=== PATIENT | female | born 1970 | race Caucasian/White ===

== ENCOUNTER 2016-11-29 19:25 | Observation (INO) | payer OTHER ==
[~2016-11-29] VITALS: Ht 165.1 cm; Wt 98.7 kg
[2016-11-29] VITALS (8 sets, daily range): BP systolic 153–190; BP diastolic 85–103; PULSE 84–104; RESP 17–22; TEMP 98–98.6; O2SAT 97–100
[2016-11-29] MEDS ORDERED: SODIUM CHLOR 0.9% 1000 ML INJ 1,000 ML IV SCH (19:47)
[2016-11-29] MEDS ORDERED: MORPHINE SULFATE 4 MG/ML INJ IV PUSH ONE ×2 (20:00→22:00)
[2016-11-29] MEDS ORDERED: FAMOTIDINE 20 MG/2 ML VIAL IV PUSH ONE (20:00)
[2016-11-29] MEDS ORDERED: ONDANSETRON HCL 4 MG/2 ML VIAL IVP ONE (20:00)
[2016-11-29] MEDS ORDERED: PIPERACIL-TAZO 3.375 GM PREMIX 50 ML IV ONE (20:00)
--- NOTE | 2016-11-29 20:01 | PD ---
HPI Chief Complaint: Abdominal Pain Time Seen by Provider: 19:37 Travel History International Travel<30 days: No Contact w/Intl Traveler<30days: No Traveled to known affect area: No History of Present Illness HPI 46 year old female complains of abdominal pain. Patient states that she started having severe right upper quadrant abdominal pain for the past 5 days. Patient states that she has nausea vomiting with the pain. Patient denies any pain radiation. Patient denies any dysuria or frequency. Patient denies any vaginal discharge or bleeding. Patient was seen at a walk-in clinic in [place] today and had outpatient gallbladder ultrasound done at [facility]. Patient was contacted later on today and was told that she has gallstones, acute cholecystitis with thickened gallbladder wall. Patient was advised to go to the emergency room to be admitted for surgery. Patient has history anxiety and on Lexapro and Xanax. Patient status post in the past. Patient otherwise denies any medical problem. On a scale of 1-10 the pain is a 7. PFSH Social History Tobacco Use: No Allergies-Medications (Allergen,Severity, Reaction): Coded Allergies: No Known Allergies (Verified Allergy, Unknown, 11/29/16) Reported Meds & Prescriptions Reported Meds & Active Scripts Active Reported Xanax (Alprazolam) 0.25 Mg Tab 0.25 Mg PO Q4H PRN Lexapro (Escitalopram Oxalate) 5 Mg Tab Unknown Dose PO DAILY Tramadol (Tramadol HCl) 50 Mg Tab Unknown Dose PO Q4H PRN Lortab (Hydrocodone-Acetaminophen) 7.5-325 Mg Tab 1 Tab PO Q6H PRN Motrin Ib (Ibuprofen) 200 Mg Tablet 400 Mg PO Q6HR PRN Tylenol (Acetaminophen) 325 Mg Tab 650 Mg PO Q4H PRN Review of Systems General / Constitutional: No: Fever Eyes: No: Visual changes HENT: No: Headaches Cardiovascular: No: Chest Pain or Discomfort Respiratory: No: Shortness of Breath Gastrointestinal: Positive: Nausea, Vomiting, Abdominal Pain Genitourinary: No: Dysuria Musculoskeletal: No: Pain Skin: No Rash Neurologic: No: Weakness Psychiatric: No: Depression Endocrine: No: Polydipsia Hematologic/Lymphatic: No: Easy Bruising Physical Exam Narrative GENERAL: Well-nourished, well-developed patient. SKIN: Focused skin assessment warm/dry. HEAD: Normocephalic. EYES: No scleral icterus. No injection or drainage. NECK: Supple, trachea midline. No JVD or lymphadenopathy. CARDIOVASCULAR: Regular rate and rhythm without murmurs, gallops, or rubs. RESPIRATORY: Breath sounds equal bilaterally. No accessory muscle use. GASTROINTESTINAL: Abdomen soft, nondistended. Patient has moderate to severe tenderness on palpation of the right upper quadrant of the abdomen. No rebound tenderness. No mass. MUSCULOSKELETAL: No cyanosis, or edema. BACK: Nontender without obvious deformity. No CVA tenderness. Neurologic exam normal. Data Data Last Documented VS Vital Signs Date Time Temp Pulse Resp B/P (MAP) Pulse Ox O2 Delivery O2 Flow Rate FiO2 11/29/16 21:30 87 18 166/88 (114) 99 Room Air 11/29/16 20:32 98.5 Orders Orders Complete Blood Count With Diff (11/29/16 19:47) Comprehensive Metabolic Panel (11/29/16 19:47) Lipase (11/29/16 19:47) Prothrombin Time / Inr (Pt) (11/29/16 19:47) Urinalysis - C+S If Indicated (11/29/16 19:47) Iv Access Insert/Monitor (11/29/16 19:47) Ecg Monitoring (11/29/16 19:47) Oximetry (11/29/16 19:47) Morphine Inj (Morphine Inj) (11/29/16 20:00) Ondansetron Inj (Zofran Inj) (11/29/16 20:00) Sodium Chlor 0.9% 1000 Ml Inj (Ns 1000 M (11/29/16 19:47) Famotidine Inj (Pepcid Inj) (11/29/16 20:00) Ed Urine Pregnancytest Poc (11/29/16 19:47) Piperacil-Tazo 3.375 Gm Premix (Zosyn 3. (11/29/16 20:00) Us Abdomen Gallbladder (11/29/16 19:57) Urine Culture (11/29/16 20:10) Morphine Inj (Morphine Inj) (11/29/16 22:00) Admit Order (Ed Use Only) (11/29/16 21:56) Vital Signs (Adult) Q4H (11/29/16 21:58) Diet Npo (11/30/16 Breakfast) Activity Oob Ad Lori (11/29/16 21:58) ^ Saline Lock (11/29/16 21:58) Resp Oxygen Rashad C Titrat 1-4 L (11/29/16 ) Notify Dr: Other (11/29/16 21:58) Ondansetron Inj (Zofran Inj) (11/29/16 22:00) Acetaminophen (Tylenol) (11/29/16 22:00) Place In Observation (11/29/16 ) Code Status (11/29/16 22:00) Vital Signs (Adult) Q4H (11/29/16 22:00) Activity Oob Ad Lori (11/29/16 22:00) Intake + Output 06,14,22 (11/29/16 22:00) Consent (11/29/16 22:00) Sodium Chlor 0.9% 1000 Ml Inj (Ns 1000 M (11/29/16 22:00) Sodium Chloride 0.9% Flush (Ns Flush) (11/29/16 22:00) Sodium Chloride 0.9% Flush (Ns Flush) (11/29/16 22:00) Oxycodone-Acetamin 5-325 Mg (Percocet (11/29/16 22:00) Morphine Inj (Morphine Inj) (11/29/16 22:00) Scd / [place] / Foot Pump (11/29/16 22:00) Consult Michi Nfs (11/29/16 ) Piperacil-Tazo 3.375 Gm Premix (Zosyn 3. (11/30/16 04:00) Labs Laboratory Tests Test 11/29/16 20:10 White Blood Count 15.1 TH/MM3 Red Blood Count 4.65 MIL/MM3 Hemoglobin 14.0 GM/DL Hematocrit 41.5 % Mean Corpuscular Volume 89.3 FL Mean Corpuscular Hemoglobin 30.1 PG Mean Corpuscular Hemoglobin Concent 33.7 % Red Cell Distribution Width 11.9 % Platelet Count 471 TH/MM3 Mean Platelet Volume 7.2 FL Neutrophils (%) (Auto) 83.3 % Lymphocytes (%) (Auto) 7.6 % Monocytes (%) (Auto) 5.3 % Eosinophils (%) (Auto) 0.3 % Basophils (%) (Auto) 3.5 % Neutrophils # (Auto) 12.7 TH/MM3 Lymphocytes # (Auto) 1.1 TH/MM3 Monocytes # (Auto) 0.8 TH/MM3 Eosinophils # (Auto) 0.0 TH/MM3 Basophils # (Auto) 0.5 TH/MM3 CBC Comment AUTO DIFF Differential Comment AUTO DIFF CONFIRMED Prothrombin Time 11.2 SEC Prothromb Time International Ratio 1.0 RATIO Urine Color YELLOW Urine Turbidity CLOUDY Urine pH 6.0 Urine Specific [place] GREATER THAN 1.035 Urine Protein 100 mg/dL Urine Glucose (UA) NEG mg/dL Urine Ketones 40 mg/dL Urine Occult Blood LARGE Urine Nitrite NEG Urine Bilirubin NEG Urine Leukocyte Esterase NEG Urine RBC 20-24 /hpf Urine WBC 9-14 /hpf Urine Squamous Epithelial Cells > 8 /hpf Urine Bacteria MOD /hpf Urine Fine Granular Casts 0-2 /lpf Urine Mucus MANY /lpf Microscopic Urinalysis Comment CULTURE INDICATED Blood Urea Nitrogen 7 MG/DL Creatinine 0.78 MG/DL Random Glucose 133 MG/DL Total Protein 8.9 GM/DL Albumin 3.8 GM/DL Calcium Level 9.2 MG/DL Alkaline Phosphatase 102 U/L Aspartate Amino Transf (AST/SGOT) 18 U/L Alanine Aminotransferase (ALT/SGPT) 30 U/L Total Bilirubin 0.5 MG/DL Sodium Level 133 MEQ/L Potassium Level 3.4 MEQ/L Chloride Level 98 MEQ/L Carbon Dioxide Level 24.2 MEQ/L Anion Gap 11 MEQ/L Estimat Glomerular Filtration Rate 80 ML/MIN Lipase 78 U/L MDM Medical Decision Making Medical Screen Exam Complete: Yes Emergency Medical Condition: Yes Interpretation(s) 21:43 PM. CBC WBC 15.1. Platelets 471. 83 neutrophil. Sodium 133. Potassium 3.4. UA positive of WBC RBC and bacteria. Differential Diagnosis Differential diagnosis including acute cholecystitis, appendicitis, colitis, nephrolithiasis, pyelonephritis. Narrative Course 46 years old female with right upper quadrant abdominal pain, nausea vomiting. Outpatient ultrasound shows acute cholecystitis. Unable to obtain imaging or report of the gallbladder ultrasound. Normal saline solution 1 25 cc an hour. Morphine 2 mg IV. Zofran 4 mg IV. Pepcid 20 mg IV. Zosyn 3.375 g IV given. Diagnosis Primary Impression: Acute cholecystitis Additional Impressions: Cholelithiasis Qualified Codes: K80.00 - Calculus of gallbladder with acute cholecystitis without obstruction UTI (urinary tract infection) Qualified Codes: N30.00 - Acute cystitis without hematuria Admitting Information Admitting Physician Requests: Admit Alexandr Unger MD Nov 29, 2016 20:01
[2016-11-29 20:19] LABS: AUTOMATED NEUTROPHIL # 12.7 TH/MM3 (1.8-7.7); BASOPHIL # 0.5 TH/MM3 (0-0.2); BASOPHIL % 3.5 % (0.0-2.0); EOSINOPHIL % 0.3 % (0.0-4.0); HEMATOCRIT 41.5 % (35.0-46.0); LYMPH % 7.6 % (9.0-44.0); LYMPHOCYTE # 1.1 TH/MM3 (1.0-4.8); MEAN CELL VOLUME 89.3 FL (80.0-100.0); MEAN CORPUSCULAR HEMOGLOBIN 30.1 PG (27.0-34.0); MEAN CORPUSCULAR HGB CONC 33.7 % (32.0-36.0); MONO % 5.3 % (0.0-8.0); NEUT % 83.3 % (16.0-70.0); PLATELET COUNT 471 TH/MM3 (150-450); RED BLOOD COUNT 4.65 MIL/MM3 (4.00-5.30); RED CELL DISTRIBUTION WIDTH 11.9 % (11.6-17.2); WHITE BLOOD COUNT 15.1 TH/MM3 (4.0-11.0)
[2016-11-29 20:20] LABS: BLOOD, URINE LARGE (NEG); GLUCOSE,URINE NEG (NEG); KETONE, URINE 40 mg/dL (NEG); NITRITE,URINE NEG (NEG)
[2016-11-29 20:27] LABS: MUCUS URINE MANY /lpf (OCC); URINE COLOR YELLOW (YELLW/STRAW)
[2016-11-29 20:29] LABS: BACTERIA, URINE MOD /hpf; COMMENT (UR) CULTURE INDICATED; CULTURE IF INDICATED CULTURE INDICATED; SQUAMOUS EPITHELIAL CELL URINE > 8 /hpf (0-5)
[2016-11-29 20:32] LABS: CHLORIDE 98 MEQ/L (98-107); HEMO FLAGS AUTO DIFF; POTASSIUM 3.4 MEQ/L (3.5-5.1); SODIUM (NA) 133 MEQ/L (136-145)
[2016-11-29 20:36] LABS: ANION GAP 11 MEQ/L (5-15); BICARBONATE 24.2 MEQ/L (21.0-32.0); BLOOD UREA NITROGEN 7 MG/DL (7-18)
[2016-11-29 20:37] LABS: PROTHROMBIN TIME - PATIENT 11.2 SEC (9.8-11.6)
[2016-11-29] MEDS ORDERED: ALPR.25 PO (20:38)
[2016-11-29] MEDS ORDERED: IBUP-1129 PO (20:38)
[2016-11-29] MEDS ORDERED: LEXA5TAB PO (20:38)
[2016-11-29] MEDS ORDERED: TYLE325T PO (20:38)
[2016-11-29] MEDS ORDERED: HYDR-3534 PO (20:38)
[2016-11-29] MEDS ORDERED: TRAM50TA PO (20:38)
[2016-11-29 20:39] LABS: ALT (GPT) 30 U/L (10-53); AST (GOT) 18 U/L (15-37); GLOMERULAR FILTRATION RATE 80 ML/MIN (>89)
[2016-11-29 20:41] LABS: TOTAL BILIRUBIN ADULT 0.5 MG/DL (0.2-1.0)
[2016-11-29 20:42] LABS: ALKALINE PHOSPHATASE 102 U/L (45-117)
[2016-11-29 20:56] LABS: SCAN/DIFF AUTO DIFF CONFIRMED
--- NOTE | 2016-11-29 21:51 | RADRPT ---
EXAM DATE/TIME: 11/29/2016 20:42 [facility] COMPARISON: No previous studies available for comparison. INDICATIONS : Right upper quadrant pain. MEDICAL HISTORY : Right upper quadrant pain. SURGICAL HISTORY : section. Tubal ligation. ENCOUNTER: Initial ACUITY: 2 days PAIN SCORE: 10/10 LOCATION: Right upper quadrant MEASUREMENTS: LIVER: 19.1 cm length COMMON DUCT: 4 mm RIGHT KIDNEY: 11.2 x 6.5 x 5.8 cm FINDINGS: Small gallstones with gallbladder sludge noted. Positive sonographic Duran's sign with mild gallblad marcella wall thickening. Fatty, mildly enlarged liver. No biliary ductal dilatation. Portal venous flow normal direction. CONCLUSION: 1. Gallstones with gallbladder sludge, mild gallbladder wall thickening and positive sonographic Murp hy's sign. Primary differential diagnosis is cholecystitis. No ductal dilatation. Omega Nava MD on November 29, 2016 at 21:47 Board Certified Radiologist. This report was verified electronically.
[2016-11-29] MEDS ORDERED: ONDANSETRON HCL 4 MG/2 ML VIAL IV PRN (22:00)
[2016-11-29] MEDS ORDERED: SODIUM CHLORIDE 0.9% FLUSH 10 ML FLUSH IV FLUSH PRN (22:00)
[2016-11-29] MEDS ORDERED: MORPHINE SULFATE 4 MG/ML INJ IV PUSH PRN (22:00)
[2016-11-29] MEDS ORDERED: SODIUM CHLORIDE 0.9% FLUSH 10 ML FLUSH IVF PRN (22:00)
[2016-11-29] MEDS ORDERED: ACETAMINOPHEN 325 MG TAB PO PRN (22:00)
[2016-11-29] MEDS: SODIUM CHLORIDE 0.9% FLUSH 10 ML FLUSH IV FLUSH SCH (22:38)
[2016-11-29] MEDS: SODIUM CHLOR 0.9% 1000 ML INJ 1,000 ML IV SCH (22:38)
[2016-11-30] MEDS: MORPHINE SULFATE 4 MG/ML INJ IV PRN ×5 (02:08→23:31)
[2016-11-30] MEDS: PIPERACIL-TAZO 3.375 GM PREMIX 50 ML IV SCH ×3 (03:54→23:32)
[2016-11-30] MEDS: SODIUM CHLOR 0.9% 1000 ML INJ 1,000 ML IV SCH ×3 (03:56→20:19)
[2016-11-30] MEDS ORDERED: PIPERACIL-TAZO 3.375 GM PREMIX 50 ML IV SCH (07:00)
[2016-11-30 07:50] VITALS: O2SAT 97
[2016-11-30 08:00] VITALS: BP 155/87; PULSE 97; RESP 18; TEMP 99.2; O2SAT 97
[2016-11-30] MEDS: SODIUM CHLORIDE 0.9% FLUSH 10 ML FLUSH IV FLUSH SCH ×2 (08:42→20:19)
[2016-11-30] MEDS ORDERED: SODIUM CHLORIDE 0.9% FLUSH 10 ML FLUSH IV FLUSH SCH (09:00)
[2016-11-30] MEDS ORDERED: PHENYLEPH/NS 1000 MCG/10 ML SYR IV ONE (10:09)
[2016-11-30] MEDS ORDERED: ONDANSETRON HCL 4 MG/2 ML VIAL IV PUSH ONE (10:09)
[2016-11-30] MEDS ORDERED: NORMOSOL R INJ 2,000 ML IV ONE (10:09)
[2016-11-30] MEDS ORDERED: PROPOFOL 200 MG/20 ML AMP IV ONE (10:09)
[2016-11-30] MEDS ORDERED: BUPIVACAINE HCL PF 0.5% 30 ML VIAL ONE (10:31)
[2016-11-30] MEDS ORDERED: LIDOCAINE 1%/EPINEPHrine 1:100,000 SOLN 20 ML VIAL ONE (10:31)
--- NOTE | 2016-11-30 11:00 | HHI.PR ---
Immediate Post Op Note Procedure Date: Nov 30, 2016 Pre Op Diagnosis: acute cholecystitis with cholelithiasis Post Op Diagnosis: same Surgeon: Mandeep Barnard MD Switch Foreman(s): see or sheet Procedure: lap tiago Findings: distended gallbladder Complications: none Specimen(s) removed: gallbladder Estimated blood loss: 5cc Anesthesia: General Drains: None Patient to: PACU Patient Condition: Good Mandeep Barnard MD Nov 30, 2016 11:00
[2016-11-30 13:49] VITALS: PULSE 107
[2016-11-30] MEDS ORDERED: fentaNYL CITRATE 250 MCG/5 ML AMP ONE (14:01)
[2016-11-30] MEDS ORDERED: *MEPERIDINE 25 MG INJ VIAL PERIprocedural Use ONLY ONE (14:03)
[2016-11-30] MEDS ORDERED: MORPHINE SULFATE 4 MG/ML INJ ONE (14:16)
[2016-11-30 16:00] VITALS: BP 142/84; PULSE 99; RESP 18; TEMP 97.8; O2SAT 96
[2016-11-30 20:00] VITALS: BP 154/83; PULSE 96; RESP 18; TEMP 99.1; O2SAT 96
[2016-11-30 20:50] VITALS: O2SAT 97
--- NOTE | 2016-11-30 22:28 | MH ---
cc: ALEN MERRILL MD DATE OF ADMISSION 11/29/2016 CHIEF COMPLAINT Right upper quadrant abdominal pain. HISTORY OF PRESENT ILLNESS The patient is a 46-year-old female who presents with acute onset of abdominal pain. She states the pain started approximately five days ago. It was severe, located in the right upper quadrant, radiation to the left upper quadrant and diffusely. She said the pain continued to get worse. She states the pain was initially an 8/10 currently a 7/10 and was worse with eating. She was evaluated at a clinic with findings of a workup including gallbladder ultrasound showing multiple gallstones, thickened gallbladder wall or pericholecystic fluid. She came to emergency department for further evaluation including laboratory studies showing leukocytosis as well. She denies any significant fevers or chills. She does have some nausea and vomiting. PAST MEDICAL HISTORY The patient has no past medical history PAST SURGICAL HISTORY Two c-sections ALLERGIES NO KNOWN DRUG ALLERGIES. MEDICATIONS See MAR SOCIAL HISTORY occasional ETOH, denies smoking or IVDA. FAMILY HISTORY Mother with diabetes. Denies hypertension. REVIEW OF SYSTEMS GENERAL: The patient denies fevers or chills. HEENT: Denies eye pain, ear pain. NECK: Denies swelling or pain. LUNGS: Denies cough or wheeze. HEART: Denies palpitations, chest pain. ABDOMEN: Complained of nausea, vomiting, abdominal pain. : Denies dysuria, hematuria. ENDOCRINE: Denies polyuria, polydipsia. INTEGUMENT: Denies masses or lesions. NEUROLOGIC: Denies numbness or tingling. PHYSICAL EXAMINATION GENERAL: The patient in no acute distress. VITAL SIGNS: Temperature 98.5, pulse 87, respirations 18, blood pressure 166/80, saturation 99% on room air. HEENT: Pupils equal, round, reactive to light and accommodation. No scleral icterus. Normocephalic, atraumatic. NECK: Supple. Trachea midline. LUNGS: Bilateral expansion. Clear. HEART: S1-S2 regular. ABDOMEN: Soft, positive tenderness to palpation right upper quadrant and left upper quadrant, greater on right upper quadrant. Minimal right upper quadrant rebound. BACK: No step-offs, nontender. EXTREMITIES: Warm, well-perfused. NEUROLOGIC: Alert and oriented times three. 5/5 motor all extremities. LABORATORY AND DIAGNOSTIC DATA WBC 15.1, hemoglobin 14, hematocrit 41.5, platelet 471. Sodium 133, potassium 3.4, chloride 98, BUN seven, creatinine 0.7, calcium 9.2, AST 18, ALT 30, lipase 78, INR is one IMAGING STUDIES Ultrasound reviewed by myself showing thickened gallbladder wall, multiple gallstones with sludge and thickening, concern for acute cholecystitis. ASSESSMENT The patient is a 46-year-old female, acute onset of abdominal pain for on for five days consistent with acute cholecystitis with cholelithiasis. PLAN After full clinical, laboratory and radiologic workup, the patient above-named issues including acute cholecystitis. Discussed with the patient need for operative intervention including cholecystectomy. Discussed with the patient potential for drain placement versus open procedure given the duration of the patient's symptoms. The patient stated understanding and agreed. Currently, we will keep the patient on IV antibiotics, pain control, IV fluids, antinausea medication and watch closely and again we will take the patient to the OR for definitive operative intervention. MD NIECY Darby/ /9:58 PM /10:09 PM MTDD
[2016-12-01] VITALS: BP 152/84; PULSE 95; RESP 16; TEMP 98.6; O2SAT 96
[2016-12-01] MEDS ORDERED: PIPERACIL-TAZO 3.375 GM PREMIX 50 ML IV SCH
[2016-12-01] MEDS: MORPHINE SULFATE 4 MG/ML INJ IV PRN ×5 (03:49→22:18)
[2016-12-01] MEDS: SODIUM CHLOR 0.9% 1000 ML INJ 1,000 ML IV SCH ×3 (05:13→22:19)
[2016-12-01] MEDS: oxyCODONE/ACETAMINOPHEN 5 MG/325 MG TAB PO PRN ×4 (05:13→20:17)
[2016-12-01 05:59] LABS: AUTOMATED NEUTROPHIL # 9.2 TH/MM3 (1.8-7.7); BASOPHIL % 0.2 % (0.0-2.0); EOSINOPHIL % 0.1 % (0.0-4.0); HEMATOCRIT 33.9 % (35.0-46.0); LYMPH % 11.1 % (9.0-44.0); LYMPHOCYTE # 1.2 TH/MM3 (1.0-4.8); MEAN CELL VOLUME 91.3 FL (80.0-100.0); MEAN CORPUSCULAR HEMOGLOBIN 30.2 PG (27.0-34.0); MONO % 6.6 % (0.0-8.0); PLATELET COUNT 424 TH/MM3 (150-450); RED BLOOD COUNT 3.72 MIL/MM3 (4.00-5.30); RED CELL DISTRIBUTION WIDTH 12.5 % (11.6-17.2); WHITE BLOOD COUNT 11.1 TH/MM3 (4.0-11.0)
[2016-12-01 06:00] LABS: HEMO FLAGS DIFF FINAL
[2016-12-01 06:09] LABS: ALT (GPT) 71 U/L (10-53); ANION GAP 8 MEQ/L (5-15); AST (GOT) 54 U/L (15-37); BICARBONATE 26.8 MEQ/L (21.0-32.0); BLOOD UREA NITROGEN 6 MG/DL (7-18); CHLORIDE 106 MEQ/L (98-107); GLOMERULAR FILTRATION RATE 100 ML/MIN (>89); POTASSIUM 3.4 MEQ/L (3.5-5.1); SODIUM (NA) 141 MEQ/L (136-145); TOTAL BILIRUBIN ADULT 0.4 MG/DL (0.2-1.0)
[2016-12-01 06:16] LABS: ALKALINE PHOSPHATASE 94 U/L (45-117)
--- NOTE | 2016-12-01 07:24 | HHI.PR ---
Subjective Subjective Notes no acute issues, c/o pain to shoulder and ruq, tolerating clears Objective Vitals/I&O Vital Signs Date Time Temp Pulse Resp B/P (MAP) Pulse Ox O2 Delivery O2 Flow Rate FiO2 12/01/16 00:00 98.6 95 16 152/84 (106) 96 11/30/16 20:50 21 11/30/16 14:45 Room Air 11/30/16 14:30 2 Labs Laboratory Tests Test 12/01/16 05:08 White Blood Count 11.1 Red Blood Count 3.72 Hemoglobin 11.2 Hematocrit 33.9 Mean Corpuscular Volume 91.3 Mean Corpuscular Hemoglobin 30.2 Mean Corpuscular Hemoglobin Concent 33.0 Red Cell Distribution Width 12.5 Platelet Count 424 Mean Platelet Volume 7.3 Neutrophils (%) (Auto) 82.0 Lymphocytes (%) (Auto) 11.1 Monocytes (%) (Auto) 6.6 Eosinophils (%) (Auto) 0.1 Basophils (%) (Auto) 0.2 Neutrophils # (Auto) 9.2 Lymphocytes # (Auto) 1.2 Monocytes # (Auto) 0.7 Eosinophils # (Auto) 0.0 Basophils # (Auto) 0.0 CBC Comment DIFF FINAL Differential Comment Blood Urea Nitrogen 6 Creatinine 0.64 Random Glucose 107 Total Protein 6.5 Albumin 2.6 Calcium Level 8.6 Alkaline Phosphatase 94 Aspartate Amino Transf (AST/SGOT) 54 Alanine Aminotransferase (ALT/SGPT) 71 Total Bilirubin 0.4 Sodium Level 141 Potassium Level 3.4 Chloride Level 106 Carbon Dioxide Level 26.8 Anion Gap 8 Estimat Glomerular Filtration Rate 100 Date/Time Source Procedure Growth Status 11/29/16 20:10 Urine Clean Catch Urine Culture - Preliminary NO GROWTH IN 24 HOURS. Resulted Cardiovascular: Regular Lungs: Clear Abdomen: Other (incisional tenderness, krishan serosang) A/P Assessment and Plan POD 1 Lap tiago, lap duodenal serosal repair PLAN clears advance to fulls later today iv abx krishan sxn oob IS check labs tomorrow Mandeep Barnard MD Dec 01, 2016 07:24
[2016-12-01] MEDS ORDERED: PIPERACILLIN/TAZ 3.375 GM VIAL 3.375 GM in SODIUM CHLORIDE 0.9% INJ 100 ML IV SCH (08:00)
--- NOTE | 2016-12-01 08:00 | MP ---
cc: ALEN BARNARD MD DATE OF SURGERY 11/30/16 PREOPERATIVE DIAGNOSIS Cholecystitis cholelithiasis POSTOPERATIVE DIAGNOSIS Cholecystitis cholelithiasis, adhesions, viable duodenum SURGEON Juan Barnard MD ENVIRONMENTAL PROFESSIONAL see or sheet PROCEDURE Laparoscopic cholecystectomy, laparoscopic repair of duodenal serosa. WOUND CLASSIFICATION Clean contaminated. IV FLUID See anesthesia sheet. ESTIMATED BLOOD LOSS 50 mL DRAINS 10 [place] drain in the right upper quadrant FINDINGS Severely inflamed gallbladder with adhesions and omentum covering necrotic gallbladder wall, very friable duodenal mucosa adherent to gallbladder. SPECIMEN Gallbladder INDICATIONS The patient is a 36 year old female who presents with acute onset of right upper quadrant pain going on for five days. She had significant leukocytosis of 15,000, workup with ultrasound showing acute cholecystitis with cholelithiasis. The patient taken to the operating room for definitive treatment. PROCEDURE IN DETAIL The patient was taken to the operative suite, placed in supine position. She was prepped and draped in the usual sterile fashion after induction of general endotracheal anesthesia. Timeout done stating correct patient, procedure and surgical site. We were all in agreement with this. Attention directed to the umbilicus where a stab kayley incision was made. Veress needle placed, intraabdominal placement confirmed with saline drop test. Abdomen insufflated to 15 mm pneumoperitoneum. A 5 mm scope was obtained and entered through a visi port. On cursory inspection, no evidence of injury. Three other trocars placed, one epigastric 5 mm followed by two 5 right subcostal trocars. The patient placed in reverse Trendelenberg airplaned to the left. Upon initial visual inspection, gallbladder was unable to be visualized due to intense adherent adhesions to the gallbladder. These were meticulously dissected down. Once the gallbladder was identified, it was extremely viable and distended. 150 cc were aspirated with an endo-needle. This facilitated grasping the thick indurated gallbladder. This was retracted cephalad. Further dissection was done with suction irrigation, hook electro Bovie cautery in order to fully identify the gallbladder and remove adhesions of the gallbladder. Upon proceeding, the duodenal mucosa was incidentally adhered to the side of the gallbladder wall as well. This was meticulously but noted to be some separate in the serosa following this very minimally. The gallbladder was slowly and freely mobilized from the adhesions. At this point, gallbladder was dissected down to the infundibulum given again the intense scarring and inflammatory reaction, decision was made for proceeding in dome down approach. The gallbladder was taken from the gallbladder fossa using hook electro Bovie cautery and again suction irrigation. Once the gallbladder was adequately mobilized from this, two PDS endoloops were used in order to ligate the gallbladder as close to the cystic duct as possible. Endo shear was used to transect the gallbladder at the cystic duct and this was placed in an endo-catch bag along with multiple gallstones. Suction irrigation used, 2 liters in the right upper quadrant. Hemostasis was obtained with electro Bovie cautery. At this point, decision was made to place two superficial intercaporial suture in duodenum in a transverse fashion in a figure of eight fashion and laparoscopically. This was done with a 2-0 polysorb. Once we were satisfied with this, decision was made for HARIKA drain placement in the right upper quadrant which was facilitated. Also a small piece of Surgicel was also placed in the gallbladder fossa. Next, the patient was placed flat and pneumoperitoneum was removed. Trocars were removed as well. The epigastric port was closed with 0 Vicryl figure of eight suture, 4-0 Monocryl subcuticular sutures were also placed in the skin. Local anesthetic injected. The patient tolerated the procedure well. No intraoperative complications. The patient was taken stable to post anesthesia care unit. All lap and instrument counts were correct at the end of the procedure. MD NIECY Darby/ /10:04 PM /12:23 PM PHILIP
[2016-12-01] MEDS: SODIUM CHLORIDE 0.9% FLUSH 10 ML FLUSH IV FLUSH SCH ×2 (08:37→20:18)
[2016-12-01 08:40] VITALS: BP 161/102; PULSE 101; RESP 16; TEMP 99.4; O2SAT 96
[2016-12-01] MEDS: PIPERACIL-TAZO 3.375 GM PREMIX 50 ML IV SCH ×2 (09:04→16:55)
[2016-12-01] MEDS: ALPRAZolam 0.25 MG TAB PO PRN ×2 (10:30→20:17)
[2016-12-01 13:37] VITALS: BP 181/98; PULSE 95; RESP 15; TEMP 98.8; O2SAT 96
[2016-12-01] MEDS ORDERED: ENALAPRILAT 2.5 MG/2 ML VIAL IV PUSH PRN (14:15)
[2016-12-01 15:26] VITALS: BP 142/89; PULSE 89; RESP 16; TEMP 97.3; O2SAT 99
[2016-12-01 17:58] VITALS: RESP 16
[2016-12-01 20:10] VITALS: BP 161/100; PULSE 92; RESP 16; TEMP 97.9; O2SAT 99
[2016-12-02] MEDS: PIPERACIL-TAZO 3.375 GM PREMIX 50 ML IV SCH ×2 (00:06→08:01)
[2016-12-02] MEDS: oxyCODONE/ACETAMINOPHEN 5 MG/325 MG TAB PO PRN ×3 (00:11→09:54)
[2016-12-02 00:16] VITALS: BP 133/82; PULSE 73; RESP 20; TEMP 98.2; O2SAT 97
[2016-12-02] MEDS: SODIUM CHLOR 0.9% 1000 ML INJ 1,000 ML IV SCH (07:00)
[2016-12-02 07:05] LABS: AUTOMATED NEUTROPHIL # 3.4 TH/MM3 (1.8-7.7); BASOPHIL # 0.1 TH/MM3 (0-0.2); EOSINOPHIL # 0.2 TH/MM3 (0-0.4); EOSINOPHIL % 3.1 % (0.0-4.0); HEMATOCRIT 31.7 % (35.0-46.0); HEMO FLAGS DIFF FINAL; LYMPH % 34.1 % (9.0-44.0); LYMPHOCYTE # 2.1 TH/MM3 (1.0-4.8); MEAN CELL VOLUME 91.4 FL (80.0-100.0); MEAN CORPUSCULAR HEMOGLOBIN 29.9 PG (27.0-34.0); MEAN CORPUSCULAR HGB CONC 32.7 % (32.0-36.0); NEUT % 55.8 % (16.0-70.0); PLATELET COUNT 397 TH/MM3 (150-450); RED BLOOD COUNT 3.47 MIL/MM3 (4.00-5.30); RED CELL DISTRIBUTION WIDTH 12.3 % (11.6-17.2); WHITE BLOOD COUNT 6.2 TH/MM3 (4.0-11.0)
[2016-12-02 07:15] LABS: CHLORIDE 107 MEQ/L (98-107); POTASSIUM 3.1 MEQ/L (3.5-5.1); SODIUM (NA) 142 MEQ/L (136-145)
[2016-12-02 07:19] LABS: ANION GAP 9 MEQ/L (5-15); BICARBONATE 26.2 MEQ/L (21.0-32.0); BLOOD UREA NITROGEN 5 MG/DL (7-18)
[2016-12-02 07:22] LABS: ALT (GPT) 87 U/L (10-53); AST (GOT) 63 U/L (15-37); GLOMERULAR FILTRATION RATE 127 ML/MIN (>89)
[2016-12-02 07:23] LABS: TOTAL BILIRUBIN ADULT 0.3 MG/DL (0.2-1.0)
[2016-12-02 07:25] LABS: ALKALINE PHOSPHATASE 174 U/L (45-117)
[2016-12-02 08:00] VITALS: BP 155/83; PULSE 86; RESP 18; TEMP 97.5; O2SAT 98
[2016-12-02] MEDS: MORPHINE SULFATE 4 MG/ML INJ IV PRN (08:02)
[2016-12-02] MEDS: SODIUM CHLORIDE 0.9% FLUSH 10 ML FLUSH IV FLUSH SCH (08:08)
--- NOTE | 2016-12-02 09:19 | HHI.PR ---
Subjective Subjective Notes doing well, no fever tolerating diet Objective Vitals/I&O Vital Signs Date Time Temp Pulse Resp B/P (MAP) Pulse Ox O2 Delivery O2 Flow Rate FiO2 12/02/16 01:00 18 12/02/16 00:16 98.2 73 133/82 (99) 97 11/30/16 20:50 21 11/30/16 14:45 Room Air 11/30/16 14:30 2 Labs Laboratory Tests Test 12/02/16 06:23 White Blood Count 6.2 Red Blood Count 3.47 Hemoglobin 10.4 Hematocrit 31.7 Mean Corpuscular Volume 91.4 Mean Corpuscular Hemoglobin 29.9 Mean Corpuscular Hemoglobin Concent 32.7 Red Cell Distribution Width 12.3 Platelet Count 397 Mean Platelet Volume 7.3 Neutrophils (%) (Auto) 55.8 Lymphocytes (%) (Auto) 34.1 Monocytes (%) (Auto) 6.0 Eosinophils (%) (Auto) 3.1 Basophils (%) (Auto) 1.0 Neutrophils # (Auto) 3.4 Lymphocytes # (Auto) 2.1 Monocytes # (Auto) 0.4 Eosinophils # (Auto) 0.2 Basophils # (Auto) 0.1 CBC Comment DIFF FINAL Differential Comment Blood Urea Nitrogen 5 Creatinine 0.52 Random Glucose 81 Total Protein 6.2 Albumin 2.5 Calcium Level 8.0 Alkaline Phosphatase 174 Aspartate Amino Transf (AST/SGOT) 63 Alanine Aminotransferase (ALT/SGPT) 87 Total Bilirubin 0.3 Sodium Level 142 Potassium Level 3.1 Chloride Level 107 Carbon Dioxide Level 26.2 Anion Gap 9 Estimat Glomerular Filtration Rate 127 Date/Time Source Procedure Growth Status 11/29/16 20:10 Urine Clean Catch Urine Culture - Final <10,000 CFU/ML MIXED GRAM POSITIVE FL... Complete Cardiovascular: Regular Lungs: Clear Abdomen: Other (incisional tenderness, krishan serosang, c/d/i) A/P Assessment and Plan POD 2 Lap tiago, lap duodenal serosal repair PLAN soft diet iv abx krishan sxn oob IS d/c home Mandeep Barnard MD Dec 02, 2016 09:19
== END 2016-12-02 11:53 | disposition home or self-care (01) ==
LOC: PHED 19:25 → PHEDA 22:03 → INTOOBSV 22:03 → PH3A 23:09 → PH3B 11-30 17:12
PROVIDERS: ADMIT Surgery; ATTEND Surgery
DX: K80.00 Calculus of gallbladder with acute cholecystitis without obstruction (principal); K31.89 Other diseases of stomach and duodenum; N30.00 Acute cystitis without hematuria
CPT/HCPCS: 00790; 43659; 47562; 76705; 80053; 81001; 83690; 84703; 85025; 85610; 87086; 88304; 94150; 96361; 96365; 96366; 96375; 96376; 99285; G0378; J2175; J2270; J2370; J2405; J2543; J3010; J7030